=== PATIENT | female | born 1990 | race Caucasian/White ===

== ENCOUNTER 2024-12-10 00:50 | Inpatient (IN) | payer OTHER ==
[~2024-12-10] VITALS: Ht 167.6 cm; Wt 52.3 kg
[2024-12-10 02:35] VITALS: TEMP 98
[2024-12-10 03:29] LABS: APPEARANCE,URINE CLEAR (CLEAR); GLUCOSE, URINE (UA) NEGATIVE (NEGATIVE); LEUKOCYTE ESTERASE ,URINE TRACE (NEGATIVE); NITRATE,URINE NEGATIVE (NEGATIVE); OCCULT BLOOD,URINE NEGATIVE (NEGATIVE); SPECIFIC GRAVITIY, URINE 1.029 (1.003-1.030)
[2024-12-10 03:42] LABS: HCG,QUAL URINE NEGATIVE (NEGATIVE)
[2024-12-10 03:44] LABS: SQUAMOUS EPITHELIAL CELL,UR Moderate /LPF (None Seen)
[2024-12-10 06:30] VITALS: BP 131/85; PULSE 69; RESP 17; O2SAT 100
== END 2024-12-10 13:10 | DRG 761 ==
LOC: EMS 00:57 → EDH 05:55 → 5N 07:21
PROVIDERS: ADMIT Internal Medicine; ATTEND Internal Medicine
DX: T19.2XXA Foreign body in vulva and vagina, initial encounter (principal); W44.8XXA Other foreign body entering into or through a natural orifice, initial encounter
CPT/HCPCS: 81001; 84703; 99285; 72192-99; Z7502